=== PATIENT | female | born 2000 | race African-American/Black ===

== ENCOUNTER 2025-01-25 09:57 | Emergency (ER) | payer SELFPAY ==
[2025-01-25 10:06] VITALS: BP 108/48; PULSE 96; RESP 20; TEMP 98.3; BMI 33.8
[2025-01-25] MEDS: LIDOCAINE HCL 1%, 10 MG/ML (50 mL VIAL) SQ ONE (12:26)
[2025-01-25] MEDS ORDERED: LIDOCAINE HCL 1%, 10 MG/ML (20ML VIAL) ONE (12:26)
== END 2025-01-25 13:50 | disposition home or self-care (01) ==
LOC: JER 09:57
PROC: 0H98XZZ Drainage of Buttock Skin, External Approach (ICD-10-PCS; principal; 2025-01-25)
DX: L05.01 Pilonidal cyst with abscess (principal)
CPT/HCPCS: 99283-25